=== PATIENT | male | born 1935 | race Two or more races ===

== ENCOUNTER 2018-10-15 08:50 | Outpatient (CLI) | payer OTHER ==
[~2018-10-15 08:50] MED LIST: AZO STANDARD95 MG PO; CATAFLAM50 MG PO; HYOSCYAMINE0.125 M1 SL; INTESTINEX1 CA1 PO; LEVAQUIN500 MG PO; OXYC1TAB9 PO; PROTONIX40 MG PO
[2018-10-16] MEDS ORDERED: VASOTEC20 M1 PO (10:27)
[2018-10-16] MEDS ORDERED: NORVASC5 MG PO (10:27)
[2018-10-16] MEDS ORDERED: ZOCOR20 MG PO (10:27)
[2018-10-16] MEDS ORDERED: TAMS0.4C PO (10:28)
[2018-10-16] MEDS ORDERED: METFORMIN HCL500 MG PO (10:28)
== END 2018-10-15 09:32 | disposition home or self-care (01) ==
LOC: LAB 08:50 → EKG 08:50
DX: D12.6 Benign neoplasm of colon, unspecified (principal); F68.8 Other specified disorders of adult personality and behavior; Z01.810 Encounter for preprocedural cardiovascular examination

== ENCOUNTER 2018-10-18 06:44 | Day surgery (SDC) | payer OTHER ==
[~2018-10-18 06:44] MED LIST changes: +METFORMIN HCL500 MG PO; +NORVASC5 MG PO; +TAMS0.4C PO; +VASOTEC20 M1 PO; +ZOCOR20 MG PO
[2018-10-18] MEDS ORDERED: ULTRACET PO (08:24)
== END 2018-10-18 10:03 | disposition home or self-care (01) ==
LOC: CIR.AMB 06:44
DX: C18.2 Malignant neoplasm of ascending colon (principal)

== ENCOUNTER 2019-06-04 07:03 | Day surgery (SDC) | payer OTHER ==
[~2019-06-04 07:03] MED LIST changes: +ULTRACET PO
== END 2019-06-04 11:48 | disposition home or self-care (01) ==
LOC: AMB-ENDOS 07:03
DX: D12.3 Benign neoplasm of transverse colon (principal); D12.4 Benign neoplasm of descending colon; K57.30 Diverticulosis of large intestine without perforation or abscess without bleeding; K64.8 Other hemorrhoids

== ENCOUNTER → 2021-02-22 | Outpatient (CLI) | payer OTHER | END | disposition home or self-care (01) | LOC: MRI 10:45 | PROVIDERS: ATTEND Psychiatry & Neurology Clinical Neurophysiology | DX: G93.89 Other specified disorders of brain (principal) | CPT/HCPCS: 70551 ==